=== PATIENT | female | born 1970 | race Caucasian/White ===

== ENCOUNTER 2024-09-19 08:53 | Day surgery (SDC) | payer OTHER ==
[2024-09-17 12:06] LABS: Absolute Eosinophils 0.1 K/uL (0-0.5); Absolute Lymphocytes (CBC) 1.7 K/uL (0.7-4.9); Absolute Monocytes 0.6 K/uL (0.1-1.3); Absolute Neutrophil 3.5 K/uL (1.8-8.0); Basophils % 0.8 % (0-1.3); Eosinophils % 1.3 % (0-4.4); Hematocrit 45.3 % (36.0-45.0); Hemoglobin 15.3 g/dL (12.0-15.0); Lymphocytes % 28.8 % (15.3-44.8); MCH 30.2 pg (27.0-35.0); MCHC 33.9 g/dL (32.0-36.0); MCV 89.1 fL (80-100); MPV 8.7 fL (7.6-11.3); Monocytes % 10.1 % (3.3-12.3); Nucleated Red Blood Cells % 0.1 % (0-0); Platelets 253 thou/uL (152-406); RBC Red Blood Cell Count 5.08 M/uL (3.86-4.86); Red Cell Distribution Width 13.4 % (12.1-15.2)
[2024-09-17 12:17] LABS: Albumin 3.5 g/dL (3.4-5.0); Albumin/Globulin Ratio 0.9 (1.1-1.8); Bilirubin Direct 0.2 mg/dL (0-0.2); Bilirubin Indirect, Calculated 0.6 mg/dL (0.2-0.8); Bilirubin Total 0.8 mg/dL (0.2-1.0); Globulin 4.1 g/dL (2.3-3.5); Protein, Total 7.6 g/dL (6.4-8.2)
--- NOTE | 2024-09-17 12:26 | RAD REPORT ---
EXAMINATION: TWO VIEW CHEST XR CLINICAL INDICATION: PREOP TECHNIQUE: 2 views of the chest was performed. COMPARISON: No prior exam. FINDINGS: The lungs are well inflated and clear. The heart is normal in size. No displaced fractures evident. IMPRESSION: No acute or significant abnormalities.
[2024-09-19] MEDS: Ringers Lactate 1,000 ML IV ONE (09:30)
[2024-09-19] MEDS ORDERED: FENTANYL CITR 100 MCG/2 ML ONE ×2 (09:31→10:20)
[2024-09-19] MEDS ORDERED: GLYCOPYRROLATE 0.2 MG/ML SYR ONE (09:31)
[2024-09-19] MEDS ORDERED: ONDANSETRON 4 MG/2 ML VIAL ONE (09:31)
[2024-09-19] MEDS ORDERED: propofoL 200 MG/20 ML VIAL IV ONE (09:31)
[2024-09-19] MEDS ORDERED: NEOSTIGMINE 1 MG/ML -10 ML VIAL ONE (09:31)
[2024-09-19] MEDS ORDERED: LIDOCAINE 2% MPF 5 ML VIAL ONE (09:32)
[2024-09-19] MEDS ORDERED: ROCURONIUM 50 MG/5 ML VIAL IV ONE (09:32)
[2024-09-19] MEDS ORDERED: MIDAZOLAM HCL 2 MG/2 ML INJ ONE (09:32)
[2024-09-19] MEDS: CEFOXITIN SODIUM 1 GM/VIAL ONE (09:46)
[2024-09-19] MEDS ORDERED: dexAMETHasone 10 MG/ML VIAL ONE (10:05)
[2024-09-19] MEDS ORDERED: EPHEDRINE SULF 50 MG/ML VIAL ONE (10:33)
--- NOTE | 2024-09-19 10:55 | P.BOP ---
Preoperative diagnosis: symptomatic cholelithiasis, acute cholecystitis Postoperative diagnosis: same, incarcerated umbilical hernia Primary procedure: 1. Laparoscopic cholecystectomy Secondary procedure: 2. Open repair of incarcerated umbilical hernia Relish Blender: Yeni Campos) Estimated blood loss: <10cc Specimen: hernia sac and content Findings: incarcerated omemtum Anesthesia: General Complications: None Transferred to: Recovery Room Condition: Good
[2024-09-19] MEDS ORDERED: Mastisol Adhesive Liq ONE (11:00)
[2024-09-19] MEDS: ONDANSETRON 4 MG/2 ML VIAL ONE (11:20)
[2024-09-19] MEDS: PROMETHAZINE INJ 25 MG/ML AMP ONE (11:30)
[2024-09-19 11:55] VITALS: TEMP 98.5
[2024-09-19] MEDS ORDERED: CODEINE 30MG/APAP 300MG TAB ONE (12:12)
[2024-09-19 13:08] VITALS: BP 114/67; O2SAT 97
--- NOTE | 2024-09-19 16:31 | OP ---
Date of Procedure: 09/19/2024 Surgeon: Tam Kern MD Consumer Affairs Director: DALI Rossi. Preoperative Diagnoses: Acute cholecystitis, symptomatic cholelithiasis. Postoperative Diagnoses: Acute cholecystitis, symptomatic cholelithiasis. Procedure: Laparoscopic cholecystectomy, open repair of an incarcerated umbilical hernia Estimated Blood Loss: Less than 10 cc. Specimen: Hernia sac and content. Finding: Incarcerated omentum. Anesthesia: General plus local. Indications: This is the case of a 54-year-old patient who comes to us with symptomatic cholelithias is, acute cholecystitis. The benefits, alternatives, and risks of laparoscopic possible open cholecy stectomy fully explained which include, but not limited to infection, bleeding, damage to adjacent st ructures, anesthesia complication, recurrence, NE, even . She also understands this may not rel ieve the symptoms, she might need more than one surgical intervention. She understood, signed a cons ent. She was also advised importance of weight loss. Her BMI at this moment 38.8. Description Of Procedure: The patient brought to the operating room, placed in supine position. Ane sthesia was induced without complication. Abdominal area was prepped and draped in usual sterile fas hion. Local anesthesia was applied after time-out and then an incision was made in the supraumbilica l region. Immediately noticed the patient to have an umbilical hernia. We cannot proceed since this is on our way, so we have to fix this hernia, but we noticed the patient to have incarcerated omentu m. It cannot be reduced. Once we opened the hernia sac, we proceeded then to, between Mona clamps and 0 chromic, ligate that part of the omentum that cannot be reduced. The rest reduced back into th e abdominal cavity after fully inspecting and making sure that it is not bleeding. Removed the herni a sac, cleaned the fascial edges, placed Vicryl #1 inside the fascia. Nya trocar was carefully in troduced. No bleeding was obtained. I placed 3 more trocars, 5 mm each one of them, 1 in epigastric area, 2 in right upper quadrant using Nya technique which consisted of local anesthetic sharp inc ision of the skin, introduction of the trocars under direct vision. This allowed me to put a grasper in the fundus of the gallbladder, another grasper in the infundibulum, retracting the gallbladder in the inferolateral fashion, exposing the triangle of Calot, obtaining critical view. The cystic duct and cystic artery were clearly isolated, freed circumferentially, and a connection between those and the gallbladder was clearly identified. I proceeded to ligate those by using at least 3 clips proxi mal, 1 clip distal, ligation in middle. Same was done with the cystic artery. No bile leak, no blee ding. The gallbladder was removed from the liver using Bovie cauterizer and removed from abdominal c avity using the EndoCatch through the umbilical incision. The area was inspected once again, no bile leak, no bleeding. At that moment, I proceeded to remove the trocars under direct vision. Deflated pneumoperitoneum. Closed the fascia with #1 Vicryl. Irrigated subcutaneous tissue, closed that wit h 3-0 chromic and the skin with subcuticular closure with 3-0 chromic and Steri-Strips on top. Spong e count, instrument counts correct. The patient tolerated the procedure well. The patient sent to [facility] in stable condition. Diagnoses: Acute cholecystitis, symptomatic cholelithiasis and umbilical hernia. Procedures: Laparoscopic cholecystectomy and open repair of incarcerated umbilical hernia. Condition: Stable. Disposition: Home. Activity: As tolerated, no heavy lifting. Followup: Follow up in my office in 1 week, call for appointment [phone]. Keep area dry for 48 shawna rs, then may shower. Keep Steri-Strip intact. For medications, already prescribed and call the [facility]. ALYCE/LORI Voice ID: [id number] Report ID: [id number]
== END 2024-09-19 13:15 | disposition home or self-care (01) ==
LOC: OR 08:53
PROVIDERS: ATTEND Surgery
PROC: 0FT44ZZ Resection of Gallbladder, Percutaneous Endoscopic Approach (ICD-10-PCS; principal; 2024-09-19 10:00)
DX: K80.10 Calculus of gallbladder with chronic cholecystitis without obstruction (principal)
CPT/HCPCS: 85025; 80048; 36415; 80076; 83690; 71046; 47562; J2550; J2704; J2710; J2003; J2250; J3010 ×2; J1100; J0694; J2405 ×2; J7120; 88302; 88304